=== PATIENT | male | born 1955 | race Caucasian/White ===

== ENCOUNTER → 2024-07-04 08:45 | Outpatient (REF) | payer MEDICARE, OTHER, SELFPAY ==
[2024-07-04 09:31] LABS: % Basophils 0.5 % (0-2); % Eosinophils 0.5 % (0-6); % Immature Granulocytes 0.5 % (0-0.5); % Lymphocytes 16.7 % (20.5-51.1); % Monocytes 15.2 % (1.7-9.3); % Neutrophils 66.6 % (42.2-75.2); Absolute Monocytes 0.9 10^3/uL (0.1-0.6); Absolute Neutrophils 4.1 10^3/uL (1.4-6.5); Hematocrit 34.3 % (39.0-52.0); Hemoglobin 12.3 g/dL (13.0-18.0); Mean Corp Hgb Conc. 35.9 g/dL (33.0-37.0); Mean Corpuscular Hgb 39.2 pg (27.0-31.0); Mean Corpuscular Volume 109.2 fL (80.0-94.0); Mean Platelet Volume 9.3 fL (7.4-10.4); Nucleated Red Blood Cells % 0 % (-); Platelet Count 168 10^3/uL (130-400); Red Blood Cell Count 3.14 10^6/uL (4.70-6.10); Red Cell Dist. Width 13.3 % (11.5-14.5); White Blood Cell Count 6.1 10^3/uL (4.8-10.8)
[2024-07-04 09:38] LABS: INR 1.51; PT 18.5 Sec (11.4-14.6)
[2024-07-04 10:07] LABS: ALT (SGPT) 29 U/L (0-50); AST (SGOT) 41 U/L (17-59); Albumin 3.8 g/dl (3.5-5.0); Alkaline Phosphatase 111 U/L (38-126); Blood Urea Nitrogen 9 mg/dl (9-20); Calcium 9.5 mg/dl (8.4-10.2); Carbon Dioxide 26 mmol/L (22-30); Chloride 104 mmol/L (98-107); Glucose 125 mg/dl (70-99); Magnesium 1.9 mg/dl (1.6-2.3); Sodium 140 mmol/L (135-145); eGFR > 60.00
== END ==
LOC: SDSPAT 08:45
PROVIDERS: ATTENDING PHYSICIAN Internal Medicine Cardiovascular Disease; FAMILY PHYSICIAN Family Medicine; OTHER PHYSICIAN Internal Medicine Cardiovascular Disease
DX: I48.91 Unspecified atrial fibrillation (principal); I48.19 Other persistent atrial fibrillation
CPT/HCPCS: 36415; 80053; 83735; 85025; 85610; 86850; 86900; 86901; 93005

== ENCOUNTER 2024-07-20 05:56 | Day surgery (SDC) | payer MEDICARE, OTHER, SELFPAY ==
[2024-07-04 09:01] VITALS: BMI 38.2
--- NOTE | 2024-07-04 10:30 | HPS.HSE ---
Family Physician
-
Family Physician: NO INTERVIEW UNKNOWN
Chief Complaint
-
Persistent atrial fibrillation.
History of Present Illness
The patient is a 69 year old male presenting today for persistent atrial fibrillation. The patient reports ongoing dyspnea, notably with exertion, likely secondary to his arrhythmia and underlying pulmonary issues. He previously underwent
pulmonary vein isolation in June 2016 and a NORMA-guided cardioversion in April 2024 secondary to this diagnosis. He is on current pharmacological therapy with Diltiazem. He reports he has been compliant with Eliquis for oral anticoagulation. He
notes that his current dyspnea greatly interferes with his activities of daily living and overall impacts his quality of life. He is interested in pursuing pulmonary vein isolation for further arrhythmia management. He denies any current complaints
today such as chest pain, shortness of breath at rest, nausea, vomiting, diarrhea, lightheadedness, dizziness, sore throat, or fever. He does report a chronic cough at baseline.
Medical History
Past Medical History
Past Medical History: Reports Other
Additional Past Medical History:
1. Persistent atrial fibrillation, status post pulmonary vein isolation, 06/2016, and NORMA-guided cardioversion 04/2024; pharmacological therapy with Diltiazem, oral anticoagulation with Eliquis.
2. Hypertension.
3. Hyperlipidemia.
4. Nonobstructive coronary artery disease on cardiac cath 02/2024.
5. Mild aortic stenosis.
6. Syncope, 02/2024, secondary to excessive alcohol use.
7. Asthma, mild and persistent.
8. Probable obstructive sleep apnea, sleep study pending.
9. Chronic cough.
10. GERD.
11. Peripheral neuropathy.
12. Lumbar degenerative disc disease.
13. Osteoarthritis, status post left total knee arthroplasty, 2012, and right total knee arthroplasty 2021.
14. Gout.
15. Deviated septum.
16. Mild anemia.
17. Obesity, BMI 38.2.
18. Remote tobacco abuse.
Past Surgical History: Reports Other
Additional Past Surgical History:
1. Pulmonary vein isolation.
2. NORMA-guided cardioversion.
3. Lumbar laminectomy.
4. Left total knee arthroplasty.
5. Right total knee arthroplasty.
Social History
Tobacco: Former Smoker (He is a former less than 1/2 pack per day cigarette smoker who quit tobacco products altogether in 1989. )
Alcohol: Other (He drinks 4-5 alcoholic beverages three times a week. )
Personal:
Living: Other (He lives in a split level home with his Doreen. )
Family History
Family History: Not pertinent
Allergies / Home Medications
Allergy/Medication List:
Home medications:
1. Albuterol sulfate 2 puffs inhaled every 4 hours as needed.
2. Allopurinol 100 mg p.o. daily.
3. Apixaban 5 mg p.o. twice a day.
4. Atorvastatin 40 mg p.o. daily.
5. Diltiazem 120 mg p.o. daily.
6. Dupixent 300 mg subcutaneous every 2 weeks.
7. Trelegy Ellipta 1 inhalation daily.
8. Furosemide 20 mg p.o. Sundays, Tuesdays, and .
9. Gabapentin 100 mg p.o. twice a day.
10. Ipratropium bromide 2 sprays intranasal twice a day as needed.
11. Pantoprazole 40 mg p.o. daily.
Allergies: No known allergies.
Review of Systems
-
A 12 point ROS was completed and negative except as noted: Yes
Physical Exam
Vital Signs
Blood pressure 160/93. Heart rate 91. Respirations 18. Pulse ox 95% on room air.
Height 5 feet, 3 inches. Weight 97.8 kg. BMI 38.2.
Physical Exam
General: Well Developed, Well Nourished and No Apparent Distress
HEENT: NormoCephalic, Moist mucous membranes, Atraumatic and PERRLA
Respiratory: Clear
Cardiac: Irregular Rhythm
GI: Soft, Non Tender, Non Distended and Other (Obese. )
Musculoskeletal: No Edema and Normal Gait & Station
Skin: Warm and Dry
Neuro: AO x 3 and Nonfocal/grossly intact
Laboratory Results
-
DIAGNOSTIC STUDIES as of 07/04/2024: White blood cell count 6.1. Hemoglobin 12.3. Platelet count 168,000. PT 18.5. INR 1.51. Sodium 140. Potassium 4.0. BUN 9. Creatinine 0.9. Glucose 125. Calcium 9.5. Magnesium 1.9. AST 41. ALT 29. Albumin 3.8. Type
and screen A negative.
EKG 07/04/2024: Atrial fibrillation with premature ventricular or aberrantly conducted complexes. Nonspecific ST abnormality.
Echocardiogram 06/29/2022: Ejection fraction is 65%. There is grade 2 diastolic dysfunction. There is evidence of mild aortic stenosis with a peak transaortic gradient of 28 mmHg, and a mean gradient of 13 mmHg with a calculated aortic valve area of
1.5-1.6 cm2. Mild increase in the right ventricular systolic pressure 39 mmHg. The left atrium is mildly dilated.
Chest CT 05/08/2016: Accessory right middle lobe pulmonary vein. Otherwise conventional pulmonary venous anatomy. Normal chest CT.
Impression/Plan
-
IMPRESSION/PLAN:
1. Persistent atrial fibrillation: The patient is in need of pulmonary vein isolation with Dr. Wayne Peña on 07/20/2024. The benefits and risks of the procedure have been explained to the patient. The patient understands these risks and wishes to
proceed. He will not be required to undergo a pre-procedural chest CT or transesophageal echocardiogram as he has been compliant with his home oral anticoagulation. He is aware to continue his Eliquis up until the night prior to his procedure. He
will take no medications the morning of his procedure.
[2024-07-20] VITALS (14 sets, daily range): BP systolic 117–182; BP diastolic 78–108; BMI 38.1
[2024-07-20 08:51] LABS: ACT-LR - POC 343 Seconds (116-155)
[2024-07-20 09:06] LABS: ACT-LR - POC 253 Seconds (116-155)
--- NOTE | 2024-07-20 09:12 | ITS.CL.ABL ---
Chief Technology Officer - Ablation
Ablation
Procedure Report:
ELECTROPHYSIOLOGY ABLATION STUDY
DATE:: July 20, 2024�����������������������������REFERRING: Dr. Lee pompa
INDICATION: Persistent supraventricular tachycardia in the form of atrial fibrillation.��
HISTORY: See H and P.��Prior ETOH use. Prior 2017 cryoballoon PVI
ANTIARRHYTHMIC DRUG: Diltiazem
PRE-PROCEDURE NORMA: No atrial thrombus
PRESENTING RHYTHM: A-fib
'TIME-OUT':��called and confirmed.
SEDATION/ANESTHESIA:��provided via the anesthesia department using general anesthesia (LMA).
INTRAVENOUS/ARTERIAL ACCESS:
Right femoral venous - 8Fr
Left femoral venous - 8 Fr, 6 Fr
Ultrasound guidance for bilateral femoral vein access was utilized by me to obtain access with demonstration of normal anatomy
CHADS-VASC Score:
HAS-Bled Score
PROCEDURE:
1.��A decapolar CS catheter was placed within the CS for mapping and pacing.��This was also used as the reference catheter for the 3-D map.
2. The intracardiac ultrasound catheter was positioned in the RA to identify the FO for targeting of transseptal puncture, assist��in identification of the pulmonary vein ostia, monitoring pre and post ablation pulmonary vein flow velocities,
monitoring for 'bubble' formation during RF application as a sign of thermal injury,��and to monitor for pericardial effusion during mapping and ablation procedure.���Left atrial size, LV ejection fraction, and pulmonary vein flows were monitored
pre and post ablation procedure. The other valves were inspected and found to be free of significant regurgitation or stenosis.
3.��Half of the calculated heparin bolus was administered prior to the first transeptal puncture.��Transseptal puncture was performed to diagnose RA and LA pressure so that safety of LA mapping and ablation could be further assessed, and to access
the left atrium and pulmonary veins for mapping and ablation.��This entailed advancing an 16.8 Fr SL-1 sheath, RF wire with dilator into the superior vena cava and withdrawing both (monitoring intracardiac ultrasound, fluoroscopy and tip pressure)
with the tip oriented toward the atrial septum.��The fossa ovalis was engaged (indicated by sudden displacement of the sheath tip as well as tenting of the fossa seen on intracardiac ultrasound).��Left atrial access required a pass with the
Brockenbrough needle extended.��Left atrial catheter position was confirmed by pressure monitoring (RA mean pressure 8 mm Hg and LA mean presure 14 mm Hg), LA saturation (99%),��as well as fluoroscopy.��The sheath was advanced over the dilator and
positioned in the left atrium.���The remainder of the calculated heparin bolus was administered and heparin was
infused to maintain ACT at 300 -350 seconds throughout the case.
4.��RA pacing was performed via the proximal decapolar poles and LA pacing was performed via the distal decapolr poles.
5. A quadrapolar catheter was first positioned at the His position for His Bundle recording which was tagged via the 3-D Navex sytem, and then passed to the RVA for RV pacing and recording.
6. The multipolar catheter and the Penta splint catheter were placed in each of the LIPV, LSPV, RSPV and the RIPV.��
7.��Next, a 3-D map was created using Navex.���A 3-D reconstructed CT image was compared to the 3-D Navex map to assist in anatomic interpretation, mapping and ablation.��The CT image and the NavX image were fused.
8. The pulmonary veins were isolated at baseline. 4 lesions in all of pose were given to the left superior pulmonary vein distal leeann and the left inferior pulmonary vein distal leeann and the remainder of the left atrial roof posterior wall and
floor proper were addressed in flower pose for a total of 32 lesions bring about entrance block in all 4 pulmonary veins, LA roof, left atrial posterior wall and the LA floor. Patient was converted to sinus rhythm with 1 300 J biphasic shock and
exit block was confirmed in all 4 pulmonary veins roof posterior wall and floor of the left atrium. Follow-up EP study post cardioversion with atrial extrastimuli burst pacing and AV Wenke block was performed. There was no other nonpulmonary vein
trigger for atrial fibrillation nor supraventricular mechanism of arrhythmia.
9. Normal sinus node and AV node noted.
TOTAL FLOURO TIME: 8.7 minutes 110 mGy
TOTAL RF DURATION: 0 minutes
REVERSAL OF HEPARIN: 40 mg of protamine, slow IV administration
COMPLICATIONS:
None
Intracardiac US shows no pericardial effusion post ablation.
SUMMARY:��
Complex left atrial mapping and ablation.
Left pulmonary vein leeann lesions and all of pose. Left atrial posterior wall isolation and flower pose. Entrance next block confirmed in all 4 pulmonary veins and posterior wall.
RECOMMENDATIONS:
1. Ambulate in 4 hours
2. Resume anticoagulation
3.��Will discuss with patient and family reduction of alcohol use as this can be a inducible trigger for atrial fibrillation with any remaining atrial substrate
4.��Consider same-day discharge
Copy to: Dr. Lee pompa
[2024-07-20] MEDS: ANESTHETIC LOZENGE 1 LOZENGE PO (10:26)
[2024-07-20] MEDS: CARDIZEM SR 120 MG PO (11:24)
--- NOTE | 2024-07-20 11:30 | PTCARENOTE ---
BP trending up and currently 178/103, pt asymtomatic, Marizol BAE made aware, will order pt's diltiazem dose to be given now- see mar
[2024-07-20] MEDS: LASIX 20 MG IV (11:48)
--- NOTE | 2024-07-20 11:52 | PTCARENOTE ---
Discussed BP trending and procedural IVF amount with Marizol BAE, will order 20 mg Lasix IV to be given- see mar
--- NOTE | 2024-07-20 13:15 | PTCARENOTE ---
Dr Peña at bedside with Marizol BAE, again BP trending reviewed, MD verified should proceed with discharge however diltiazem should be increased to BID and BP monitoring should be done at home, discharge instructions reprinted and instructions
reviewed with the pt
--- NOTE | 2024-07-20 13:25 | W.PN.UPDATE ---
Update Note
Progress Note Update
69 yo WM s/p PVI (same day). He denies cp, sob, deanna diet, voiding, b/l groins c/d/i soft, mild ecchymosis b/l, EKG SR 1deg AVB. His BP has been elevated post procedure 180/100, he was given his home dose of diltiazem and Lasix 20mg iv. We will
increase his diltiazem to 240mg daily or 120mg twice daily. He will make f/u BP check in 1-2 weeks at PCP or Cards office and bring log to review. Instructed to call if BP remains above 140/90. He will resume Eliquis tonight. He was instructed to
obtain sleep study and decrease ETOH consumption to help keep from Afib recurrence. He is for d/c home after 2pm.
== END 2024-07-20 14:00 | disposition home or self-care (01) ==
LOC: CATH 05:56
PROVIDERS: ATTENDING PHYSICIAN Internal Medicine Cardiovascular Disease; FAMILY PHYSICIAN Family Medicine; OTHER PHYSICIAN Internal Medicine Cardiovascular Disease
DX: I48.19 Other persistent atrial fibrillation (principal); I10 Essential (primary) hypertension; E78.5 Hyperlipidemia, unspecified; I25.10 Atherosclerotic heart disease of native coronary artery without angina pectoris; I35.0 Nonrheumatic aortic (valve) stenosis; R55 Syncope and collapse; J45.909 Unspecified asthma, uncomplicated; G47.33 Obstructive sleep apnea (adult) (pediatric); K21.9 Gastro-esophageal reflux disease without esophagitis; M51.369 Other intervertebral disc degeneration, lumbar region without mention of lumbar back pain or lower extremity pain; G62.9 Polyneuropathy, unspecified; M19.90 Unspecified osteoarthritis, unspecified site; Z96.653 Presence of artificial knee joint, bilateral; M10.9 Gout, unspecified; J34.2 Deviated nasal septum; E66.9 Obesity, unspecified; Z68.38 Body mass index [BMI] 38.0-38.9, adult; Z87.891 Personal history of nicotine dependence; Z79.899 Other long term (current) drug therapy; Z79.01 Long term (current) use of anticoagulants
CPT/HCPCS: C1732; C1894; C1730; C1892; C1759; 85347; 93005; 93656; 93657; C1733; C1766